=== PATIENT | female | born 1975 | race Two or more races ===

== ENCOUNTER → 2024-09-14 | Outpatient (CLI) | payer MEDICAID, SELFPAY ==
--- NOTE | 2024-09-14 16:28 | XR_ITS ---
Examination: Right knee 2 views TECHNIQUE: AP lateral right knee 2 views Date and time: September 14, 2024, 1635 hours INDICATIONS: Right knee pain beginning 3 weeks ago. FINDINGS: Mild narrowing medial and patellofemoral joints Small knee effusion No fracture IMPRESSION: Mild narrowing medial and patellofemoral joints
== END | disposition home or self-care (01) ==
LOC: CDIM 16:19
DX: M25.861 Other specified joint disorders, right knee (principal)
CPT/HCPCS: 73560